=== PATIENT | male | born 1980 | race Caucasian/White ===

== ENCOUNTER 2021-11-07 09:07 | Emergency (ER) | payer OTHER, SELFPAY ==
--- NOTE | 2021-11-07 09:13 | ED.URI ---
HPI - URI/Sore Throat General Stated Complaint: upper respiratory Time Seen by Provider: 11/07/21 09:13 Source: patient, family and RN notes reviewed History of Present Illness HPI Narrative: Patient is a 40-year-old male who presents the urgent care with his spouse with complaints of cough, postnasal drainage and coughing fits since last Tuesday. Patient denies of any fevers, nausea, vomiting. Denies of any shortness of breath. Patient states that he has been taking daily Zyrtec and using Mucinex without much relief. No other acute complaints. No acute distress noted. Patient aware of the plan of care. Some parts of this dictation were generated by voice recognition software and may contain typographical and/or grammatical inaccuracies. Related Data Home Medications Medication Instructions Recorded Confirmed cetirizine [Zyrtec] 10 mg PO DAILY 11/07/21 11/07/21 Allergies Allergy/AdvReac Type Severity Reaction Status Date / Time No Known Allergies Allergy Unverified 11/07/21 09:23 Review of Systems Review of Systems: CONSTITUTIONAL: Denies fever, chills, or sweats. EYES: Denies visual changes, redness, or discharge. ENT: Reports of postnasal drainage, congestion CARDIOVASCULAR: Denies chest pain, palpitations, or edema. RESPIRATORY: Reports persistent cough without dyspnea GASTROINTESTINAL: Denies abdominal pain, nausea, vomiting, or diarrhea. GENITOURINARY: Denies dysuria or hematuria. SKIN: Denies rash or itching. MUSCULOSKELETAL: Denies back pain, joint pain, or myalgia. NEUROLOGIC: Denies headache, numbness, or weakness. All other systems reviewed are negative, except as documented in HPI. PMFSH Family History Family History Sibling Family history of malignant neoplasm of brain Social History Social History Smoking status: Never smoker Alcohol intake: never Comments At the time of my signature, I reviewed and agree with the nursing past medical, surgical, social, and family history. There is no relevant family history pertinent to the patient complaint. Exam Narrative: GENERAL: This is a well-nourished, well-developed patient, in no apparent distress. HEAD: normocephalic, atraumatic. EYES: PERRL. Sclera clear/white. Vision is grossly intact. EARS: External ears normal, auditory canals clear and without drainage, bilateral cerumen noted without impaction. TMs normal without perforation. Hearing grossly intact. NOSE: External nose normal with no obvious nasal discharge mild bilateral erythemic nares clear to yellow rhinorrhea THROAT: Mucous membranes moist. Mild erythema noted posterior pharynx with moderate postnasal drainage NECK: Neck supple CARDIOVASCULAR: Regular rate and rhythm without murmurs, gallops, or rubs. RESPIRATORY: Dry cough noted on exam. Clear to auscultation. Breath sounds equal bilaterally. No wheezes, rales, or rhonchi. SKIN: warm, intact with no suspicious lesions or rash, good texture and turgor. NEURO: awake, alert, and oriented to person, place and time. There were no obvious focal neurologic abnormalities. EXTREMITIES: No clubbing, cyanosis, or edema. Course Course Level of Care: Express Care Visit Vital Signs Vital signs: Vital Signs Temperature 98.4 F 11/07/21 09:19 Pulse Rate 103 H 11/07/21 09:19 Respiratory Rate 14 11/07/21 09:19 Blood Pressure 198/87 H 11/07/21 09:19 Pulse Oximetry 98 11/07/21 09:19 Temperature 98.4 F 11/07/21 09:19 Pulse Rate 103 H 11/07/21 09:19 Respiratory Rate 14 11/07/21 09:19 Blood Pressure 198/87 H 11/07/21 09:19 Pulse Oximetry 98 11/07/21 09:19 Reviewed-patient is informed that they may have pre-hypertension or hypertension based on a blood pressure reading in the department. I recommend the patient call the primary care provider listed on their discharge instructions or a physician of their choic
[2021-11-07 09:19] VITALS: BP 198/87; PULSE 103; RESP 14; TEMP 36.9; O2SAT 98
== END 2021-11-07 09:30 | disposition home or self-care (01) ==
PROVIDERS: Emergency Provider Nurse Practitioner Family; PCP Family Medicine
DX: J40 Bronchitis, not specified as acute or chronic (principal)
CPT/HCPCS: 99213; G0463

== ENCOUNTER 2021-11-14 08:16 | Outpatient (CLI) | payer OTHER, SELFPAY ==
[2021-11-14 09:06] LABS: Basophils Absolute Auto 0.1 K/mm3 (0.0-0.1); Basophils Percent Auto 0.8 % (0.2-1.2); Eosinophils Absolute Auto 0.1 K/mm3 (0-0.3); Eosinophils Percent Auto 0.9 % (0-4.4); Hematocrit 46.9 % (42.0-52.0); Hemoglobin 14.7 g/dL (14.0-18.0); Immature Granulocyte Absolute 0.06 K/mm3 (0.00-0.031); Immature Granulocyte Percent A 0.5 % (0-0.5); Lymphocytes Absolute Auto 2.52 K/mm3 (0.9-3.2); Mean Corpuscular HGB Conc 31.3 g/dl (32-36); Mean Corpuscular Hemoglobin 26.2 pg (26-34); Mean Corpuscular Volume 83.5 fl (80-100); Mean Platelet Volume 12.3 fl (7.4-10.4); Monocytes Percent Auto 8.3 % (2.6-8.5); Neutrophils Absolute Auto 8.2 K/mm3 (1.3-6.7); Neutrophils Percent Auto 68.5 % (45.5-73.1); Platelet Count Result 201 k/mm3 (150-375); Red Blood Count 5.62 M/mm3 (4.6-6.20); Red Cell Distribution Width 13.3 % (11.5-14.5)
[2021-11-14 09:13] LABS: Alanine Aminotransferase 33 U/L (4-50); Albumin Level 4.1 g/dL (3.5-5.1); Alkaline Phosphatase 73 U/L (38-126); Anion Gap 5 mmol/L (8-16); Aspartate Amino Transferase 25 U/L (17-59); Bilirubin,Total 0.9 mg/dL (0.2-1.3); Blood Urea Nitrogen 15 mg/dL (9-20); Calcium 8.6 mg/dL (8.4-10.2); Carbon Dioxide 32 mmol/L (22-30); Chloride 101 mmol/L (98-107); Cholesterol 168 mg/dL (0-200); Estimated Glomerular Filt Rate > 60; Glucose 107 mg/dL (65-110); HDL Direct 31 mg/dL; Sodium 138 mmol/L (137-145); Triglycerides 100 mg/dL (<150)
[2021-11-14 09:24] LABS: LDL Cholesterol Direct 107 mg/dL
[2021-11-14 09:45] LABS: Hemoglobin A1C 5.6 % (<5.7)
== END 2021-11-14 08:17 | disposition home or self-care (01) ==
PROVIDERS: PCP Family Medicine; Visit Provider Family Medicine
DX: I10 Essential (primary) hypertension (principal); Z13.29 Encounter for screening for other suspected endocrine disorder; Z13.1 Encounter for screening for diabetes mellitus; E78.2 Mixed hyperlipidemia
CPT/HCPCS: 36415; 80053; 80061; 83036; 84443; 85025

== ENCOUNTER 2022-02-12 15:38 | Outpatient (CLI) | payer OTHER, SELFPAY ==
[2022-02-12 16:04] LABS: Basophils Absolute Auto 0.1 K/mm3 (0.0-0.1); Basophils Percent Auto 0.6 % (0.2-1.2); Eosinophils Absolute Auto 0.1 K/mm3 (0-0.3); Eosinophils Percent Auto 1.1 % (0-4.4); Hematocrit 45.4 % (42.0-52.0); Hemoglobin 14.4 g/dL (14.0-18.0); Immature Granulocyte Absolute 0.03 K/mm3 (0.00-0.031); Immature Granulocyte Percent A 0.3 % (0-0.5); Lymphocytes Absolute Auto 1.98 K/mm3 (0.9-3.2); Lymphocytes Percent Auto 20.4 % (18.3-44.2); Mean Corpuscular HGB Conc 31.7 g/dl (32-36); Mean Corpuscular Hemoglobin 25.8 pg (26-34); Mean Corpuscular Volume 81.2 fl (80-100); Monocytes Absolute Auto 0.7 K/mm3 (0.1-0.6); Monocytes Percent Auto 7.3 % (2.6-8.5); Neutrophils Absolute Auto 6.8 K/mm3 (1.3-6.7); Neutrophils Percent Auto 70.3 % (45.5-73.1); Platelet Count Result 197 k/mm3 (150-375); Red Blood Count 5.59 M/mm3 (4.6-6.20); White Blood Count 9.7 K/mm3 (4.5-10.0)
[2022-02-12 16:06] LABS: Alanine Aminotransferase 39 U/L (6-50); Albumin Level 4.4 g/dL (3.5-5.1); Alkaline Phosphatase 90 U/L (38-126); Anion Gap 10 mmol/L (8-16); Aspartate Amino Transferase 26 U/L (17-59); Bilirubin,Total 0.7 mg/dL (0.2-1.3); Blood Urea Nitrogen 12 mg/dL (9-20); Carbon Dioxide 26 mmol/L (22-30); Chloride 97 mmol/L (98-107); Estimated Glomerular Filt Rate > 60; Glucose 107 mg/dL (65-110); Potassium 3.8 mmol/L (3.4-5.0); Sodium 133 mmol/L (137-145)
[2022-02-12 16:36] LABS: Prostate Specific Antigen 0.9 ng/mL (< OR = 4.0)
== END 2022-02-12 15:39 | disposition home or self-care (01) ==
LOC: ANHLAB 15:40
PROVIDERS: PCP Family Medicine; Visit Provider Physician Assistant
DX: N45.1 Epididymitis (principal); R39.12 Poor urinary stream
CPT/HCPCS: 36415; 80053; 84153; 85025

== ENCOUNTER 2022-02-18 14:44 | Outpatient (CLI) | payer OTHER, SELFPAY ==
--- NOTE | ~2022-02-18 | US_ITS ---
US scrotum doppler INDICATION: Testicular pain TECHNIQUE: Testicular sonogram utilizing grayscale and color Doppler FINDINGS: The testes are normal in size and appearance. No focal lesions are seen. The right testes measures 4.3 x 2.5 x 8.6 cm centimeters, and the left testis measures 4.4 x 2.5 x 3 cm cm. There is n ormal vascular flow to both testes. The right and left epididymides appear normal. There are bilateral varicoceles. IMPRESSION: 1. Bilateral varicoceles. Reviewed, dictated and finalized at location A. IMPRESSION: 1. Bilateral varicoceles.
== END 2022-02-18 14:45 | disposition home or self-care (01) ==
PROVIDERS: PCP Family Medicine; Visit Provider Physician Assistant
DX: N45.1 Epididymitis (principal); R35.0 Frequency of micturition; I86.1 Scrotal varices
CPT/HCPCS: 76870; 93976

== ENCOUNTER 2022-03-19 16:23 | Outpatient (CLI) | payer OTHER, SELFPAY ==
--- NOTE | ~2022-03-19 | XR_ITS ---
EXAM: XR abdomen/kub 1V DATE: 03/19/2022 16:45 HISTORY: R39.11 - Hesitancy of micturition;injury to testes 2 mos ago . COMPARISON: None available. FINDINGS: Normal bowel gas pattern. No organomegaly. No abnormal abdominal calcification. Mild lumba r scoliosis. Multilevel marginal osteophytosis in the spine. IMPRESSION: Lumbar scoliosis. Multilevel degenerative disc disease. Reviewed, dictated and finalized at location K.
== END 2022-03-19 16:24 | disposition home or self-care (01) ==
LOC: ANHIMG 16:25
PROVIDERS: PCP Family Medicine; Visit Provider Family Medicine
DX: R39.11 Hesitancy of micturition (principal); M41.9 Scoliosis, unspecified; M51.36 Other intervertebral disc degeneration, lumbar region
CPT/HCPCS: 74018

== ENCOUNTER 2022-05-13 10:12 | Outpatient (CLI) | payer OTHER, SELFPAY ==
[2022-05-18 20:07] LABS: PSA, Free 0.21 ng/mL; PSA, Total 0.7 ng/mL (<=4.0)
== END 2022-05-13 10:13 | disposition home or self-care (01) ==
LOC: ANHLAB 10:15
PROVIDERS: PCP Family Medicine; Visit Provider Physician Assistant
DX: Z12.5 Encounter for screening for malignant neoplasm of prostate (principal)
CPT/HCPCS: 36415; 84153; 84154

== ENCOUNTER 2023-12-24 09:17 | Outpatient (CLI) | payer OTHER, SELFPAY ==
[2023-12-24 09:41] LABS: Basophils Absolute Auto 0.1 K/mm3 (0.0-0.1); Eosinophils Absolute Auto 0.1 K/mm3 (0-0.3); Eosinophils Percent Auto 1.1 % (0-4.4); Hematocrit 45.6 % (42.0-52.0); Hemoglobin 14.2 g/dL (14.0-18.0); Immature Granulocyte Absolute 0.02 K/mm3 (0.00-0.031); Immature Granulocyte Percent A 0.2 % (0-0.5); Lymphocytes Absolute Auto 1.52 K/mm3 (0.9-3.2); Lymphocytes Percent Auto 18.6 % (18.3-44.2); Mean Corpuscular HGB Conc 31.1 g/dl (32-36); Mean Corpuscular Hemoglobin 25.4 pg (26-34); Mean Corpuscular Volume 81.7 fl (80-100); Mean Platelet Volume 11.4 fl (7.4-10.4); Monocytes Absolute Auto 0.6 K/mm3 (0.1-0.6); Monocytes Percent Auto 7.4 % (2.6-8.5); Neutrophils Absolute Auto 5.9 K/mm3 (1.3-6.7); Neutrophils Percent Auto 71.7 % (45.5-73.1); Platelet Count Result 178 k/mm3 (150-375); Red Blood Count 5.58 M/mm3 (4.6-6.20); Red Cell Distribution Width 12.9 % (11.5-14.5); White Blood Count 8.2 K/mm3 (4.5-10.0)
[2023-12-24 09:55] LABS: Alanine Aminotransferase 37 U/L (6-50); Albumin Level 4.3 g/dL (3.5-5.1); Alkaline Phosphatase 77 U/L (38-126); Anion Gap 8 mmol/L (4-12); Aspartate Amino Transferase 29 U/L (17-59); Bilirubin,Total 0.9 mg/dL (0.2-1.3); Blood Urea Nitrogen 15 mg/dL (9-20); Calcium 9.1 mg/dL (8.4-10.2); Carbon Dioxide 28 mmol/L (22-30); Chloride 104 mmol/L (98-107); Cholesterol 173 mg/dL (0-200); Estimated Glomerular Filt Rate > 60; Glucose 124 mg/dL (65-110); HDL Direct 32 mg/dL; Potassium 4.6 mmol/L (3.4-5.0); Sodium 140 mmol/L (137-145); Triglycerides 135 mg/dL (<150)
[2023-12-24 10:06] LABS: LDL Cholesterol Direct 112 mg/dL
[2023-12-24 10:12] LABS: Hemoglobin A1C 5.9 % (<5.7)
== END 2023-12-24 09:18 | disposition home or self-care (01) ==
LOC: ANHLAB 09:19
PROVIDERS: PCP Family Medicine; Visit Provider Family Medicine
DX: R73.09 Other abnormal glucose (principal); I10 Essential (primary) hypertension; Z68.42 Body mass index [BMI] 45.0-49.9, adult
CPT/HCPCS: 36415; 80053; 80061; 83036; 85025

== ENCOUNTER 2024-08-08 14:17 | Outpatient (CLI) | payer OTHER, SELFPAY ==
--- NOTE | ~2024-08-08 | XR_ITS ---
EXAM: XR_CERV2-3V_CR DATE: 08/08/2024 14:31 HISTORY: M54.2 - Cervicalgia . COMPARISON: None available. FINDINGS: Craniocervical association and atlantoaxial joint are aligned. Mild degenerative change at the atlantodental interval. No prevertebral soft tissue swelling. 2 mm retrolisthesis at C3-4. Verte bral body heights are maintained. Normal disc spaces. Mild disc space narrowing at C4-5 and C5-6. Mil d multilevel facet sclerosis. IMPRESSION: Minimal grade 1 retrolisthesis at C3-4. Mild multilevel cervical degenerative disc diseas e. Mild multilevel facet arthropathy. Reviewed, dictated and finalized at location K. UNDERWRITER IMPRESSION: Minimal grade 1 retrolisthesis at C3-4. Mild multilevel cervical de generative disc disease. Mild multilevel facet arthropathy.
== END 2024-08-08 14:18 | disposition home or self-care (01) ==
PROVIDERS: PCP Physician Assistant Medical; Visit Provider Physician Assistant Medical
DX: M43.12 Spondylolisthesis, cervical region (principal); M50.321 Other cervical disc degeneration at C4-C5 level; M50.322 Other cervical disc degeneration at C5-C6 level; M47.892 Other spondylosis, cervical region
CPT/HCPCS: 72040

== ENCOUNTER 2025-03-30 09:21 | Outpatient (CLI) | payer OTHER, SELFPAY ==
[2025-03-30 09:54] LABS: Hematocrit 47.8 % (42.0-52.0); Hemoglobin 14.9 g/dL (14.0-18.0); Mean Corpuscular HGB Conc 31.2 g/dl (32-36); Mean Corpuscular Hemoglobin 25.0 pg (26-34); Mean Corpuscular Volume 80.2 fl (80-100); Platelet Count Result 192 k/mm3 (150-375); Red Blood Count 5.96 M/mm3 (4.6-6.20); White Blood Count 8.4 K/mm3 (4.5-10.0)
[2025-03-30 09:58] LABS: Hemoglobin A1C 5.8 % (<5.7)
[2025-03-30 10:10] LABS: Alanine Aminotransferase 38 U/L (6-50); Albumin Level 4.4 g/dL (3.5-5.1); Alkaline Phosphatase 86 U/L (38-126); Anion Gap 7 mmol/L (4-12); Aspartate Amino Transferase 30 U/L (17-59); Bilirubin,Total 1.3 mg/dL (0.2-1.3); Blood Urea Nitrogen 13 mg/dL (9-20); Calcium 9.2 mg/dL (8.4-10.2); Carbon Dioxide 29 mmol/L (22-30); Chloride 101 mmol/L (98-107); Cholesterol 188 mg/dL (0-200); Estimated Glomerular Filt Rate > 60; Glucose 120 mg/dL (65-110); HDL Direct 31 mg/dL; Potassium 4.3 mmol/L (3.4-5.0); Sodium 137 mmol/L (137-145); Total Protein 7.8 g/dL (6.3-8.2); Triglycerides 129 mg/dL (<150)
[2025-03-30 10:46] LABS: Thyroid Stimulating Hormone 0.806 uIU/mL (0.465-4.680)
== END 2025-03-30 09:22 | disposition home or self-care (01) ==
LOC: ANHLAB 09:23
PROVIDERS: PCP Family Medicine; Visit Provider Physician Assistant
DX: Z00.00 Encounter for general adult medical examination without abnormal findings (principal); I10 Essential (primary) hypertension; F41.9 Anxiety disorder, unspecified; R73.01 Impaired fasting glucose
CPT/HCPCS: 36415; 80053; 80061; 83036; 84443; 85027

== ENCOUNTER 2025-04-05 16:29 | Outpatient (CLI) | payer OTHER, SELFPAY ==
--- NOTE | ~2025-04-05 | XR_ITS ---
XR abdomen/kub 1V 04/05/2025 16:40 INDICATION: Abdominal pain TECHNIQUE: KUB COMPARISON: None FINDINGS: Bowel gas pattern is normal. There is no evidence of free air, mass, organomegaly, ascites or obstruction. No abnormal calculi are seen. The bones appear intact. IMPRESSION: 1: No acute abdominal abnormality identified. Reviewed, dictated and finalized at location O.
== END 2025-04-05 16:30 | disposition home or self-care (01) ==
PROVIDERS: PCP Family Medicine; Visit Provider Family Medicine
DX: R10.9 Unspecified abdominal pain (principal)
CPT/HCPCS: 74018

== ENCOUNTER 2025-04-10 15:52 | Outpatient (CLI) | payer OTHER, SELFPAY ==
--- NOTE | ~2025-04-10 | US_ITS ---
Clinical history:Epigastric pain EXAM:Ultrasound abdomen complete TECHNIQUE:Multiple static grayscale images and color Doppler images were obtained of the abdomen. Comparisons:None available FINDINGS: Liver is hyperechoic likely due to fatty infiltration and/or hepatocellular disease. Pancreas was not adequately visualized for evaluation. Hepatopedal flow in the portal vein. No gallbladder wall thickening or pericholecystic fluid. No gallstones. No Neff's sign according to the senior technologist. Common duct measures 4 mm. Right kidney measures 13.1 x 7.0 6.9 cm. No hydronephrosis. Left kidney measures 12.6 x 6.7 x 4.4 cm. No left-sided hydronephrosis. The spleen measures 16.5 cm in greatest dimension and is moderately enlarged. IMPRESSION: 1. No sonographic evidence for acute cholecystitis. 2. Liver is hyperechoic likely due to fatty infiltration and/or hepatocellular disease. 3. Spleen is moderately enlarged. 4. Pancreas was not visualized. If symptoms persist or worsen, consider a short-term follow-up study or CT imaging for further assessment. Reviewed, dictated and finalized at location Q. IMPRESSION: 1. No sonographic evidence for acute cholecystitis. 2. Liver is hyperechoic likely due to fatty infiltration and/or hepatocellular disease. 3. Spleen is moderately enlarged. 4. Pancreas was not visualized. If symptoms persist or worsen, consider a short-term follow-up study or CT imag ing for further assessment.
--- OUTSIDE RECORDS SUMMARY | 2025-04-10 15:55 | XMS_ITS | Continuity of Care Document ---
Author Organization [facility] Address [address] [address] Insurance Providers Payer Plan Claims Address Claims Phone Policy Number Group Number Relation Employer Guarantor Name Guarantor Guarantor Address Guarantor Phone [facility] [id number] [facility] [id number] Problems Condition ICD9 code ICD10 code SNOMED code Start Date End Date S tatus Encounter for screening for other metabolic disorders Z13.228 Results No Results Allergies, adverse reactions, alerts No known allergies and adverse reactions Medications No administered medications reported Vital Signs No vital signs reported Social History No smoking Hx information available
--- OUTSIDE RECORDS SUMMARY | 2025-04-10 15:55 | XMS_ITS | Clinical Summary ---
Author Organization [facility] Address [address] [place] [address] Phone Care Team Providers Care Primary Care Sales Representative Name Role Phone Whitney Correa MD Primary Care Provider [phone] Allergies No known active allergies Medications SUMAtriptan (IMITREX) 20 MG/ACT Solution Sikes the entire contents of one sprayer into a nostril soon after the onset of a migraine headache. A second dose may be prayed into the other notrsil after at least 2 hours if the headache persists. Use no more than 2 sprays in a day. 10 Each 0 03/12/2016 Active tamsulosin (FLOMAX) 0.4 MG Capsule Take 1 Capsule by mouth daily. 90 Capsule 02/09/2022 Active Active Problems No known active problems Social History Tobacco Use Types Packs/Day Years Used Date Smoking Tobacco: Former Smokeless Tobacco: Never Alcohol Use Standard Drinks/Week Comments No 0 (1 standard drink = 0.6 oz pur e alcohol) Sex and Gender Information Value Date Recorded Sex Assigned at Not on file Legal Sex Male 11:17 PM CDT Gender Identity Not on file Sexual Orientation Not on file Last Filed Vital Signs Vital Sign Reading Time Taken Comments Blood Pressure 135/72 02/09/2022 12:21 AM CDT Pulse 83 02/09/2022 12:21 AM CDT Temperature 36 C (96.8 F) 02/08/2022 10:21 PM CDT Respiratory Rate 19 02/09/2022 12:21 AM CDT Oxygen Saturation 98% 02/09/2022 12:21 AM CDT Inhaled Oxygen Concentration - - Weight 173.7 kg (383 lb) 02/08/2022 10:21 PM CDT Height 189.2 cm (6' 2.5) 02/08/2022 10:21 PM CD T Body Mass Index 48.52 02/08/2022 10:21 PM CDT Plan of Treatment Not on file Care Teams Primary Care Sales Representative Relationship Specialty Start Date End Date Whitney Correa MD [address] [address] PCP - General Family Medicine 02/08/22
== END 2025-04-10 15:53 | disposition home or self-care (01) ==
PROVIDERS: PCP Family Medicine; Visit Provider Family Medicine
DX: R10.13 Epigastric pain (principal)
CPT/HCPCS: 76700

== ENCOUNTER 2025-04-23 01:08 | Day surgery (SDC) | payer OTHER, SELFPAY ==
[2025-04-19 10:33] VITALS: BMI 47.5
[2025-04-23 06:19] VITALS: BP 163/84; PULSE 74; RESP 18; TEMP 36.2; O2SAT 100
[2025-04-23] MEDS: LACTATED RINGERS 1,000 ML 150 ML IV CONT (06:32)
--- NOTE | 2025-04-23 07:11 | WPDANESEPPF ---
Anes - Initial Pre Proc Eval Procedure: Operation Date: 04/23/25 07:30 Proposed Procedures p Esophagogastroduodenoscopy EGD - Johnathan Flores MD Date/Time: 04/23/25 07:11 Surgeon: Johnathan Flores MD Pre Op Diagnosis: Abnormal weight loss Patient Data Age: 44 Gender: M Height: 1.88 m Weight: 168.9 kg Last Vital Signs Temp 36.2 C L 04/23/25 06:19 Pulse 74 04/23/25 06:19 Resp 18 04/23/25 06:19 BP 163/84 H 04/23/25 06:19 Pulse Ox 100 04/23/25 06:19 O2 Del Method Room Air 04/23/25 06:19 Allergies Allergy/AdvReac Type Severity Reaction Status Date / Time No Known Allergies Allergy Verified 04/23/25 06:19 Home Medications ?Medication ?Instructions ?Recorded ?Confirmed ?Type amlodipine 5 mg tablet 5 mg PO DAILY #90 tabs 09/06/24 04/19/25 Rx sildenafil 50 mg tablet See Rx Instructions .Route 09/06/24 04/19/25 Rx .COMPLEX #14 tabs esomeprazole magnesium 40 mg 40 mg PO .AM #90 caps 04/15/25 04/19/25 Rx capsule,delayed release Patient hx anesthesia problems: none Family hx anesthesia problems: none Results Review: All pre-operative results and documents have been reviewed as part of the pre-operative evaluation. [facility] Past Medical History Medical History Swollen lymph nodes PND (post-nasal drip) Morbid (severe) obesity due to excess calories LAN (generalized anxiety disorder) Dysfunction of both eustachian tubes Essential hypertension Headache Anxiety Erectile dysfunction Dysuria Urinary hesitancy BMI 45.0-49.9, adult Contusion of scrotum Elevated BP without diagnosis of hypertension Body mass index [BMI] 45.0-49.9, adult (08/25/16) Acute pharyngitis due to other specified organisms Acute non-recurrent maxillary sinusitis Poor urinary stream Epididymitis Urinary frequency Encounter for general adult medical examination without abnormal findings Surgical History Surgical History No pertinent past surgical history Family History Family History Sibling Family history of malignant neoplasm of brain Father COPD (chronic obstructive pulmonary disease) Social History Social History Social History: Smoking packs per day: 0.5 Smoking cigarettes per day: 10.0 Years smoked: 12 Smoking pack-years: 6.00 Smoking status: Former smoker Tobacco type: cigarettes Second hand tobacco smoke exposure: No Alcohol intake: never Substance use: never Substance use type: does not use Do You Feel Safe in your Home?: Yes Lack of Transportation: No Lack of Food: Never True Current Housing: I Have Housing Concerned About Future Housing: No Difficulty Paying Gas/Electric Bills: No Difficulty Paying for Meds: No Currently Unemployed: No Education: Don't Know Difficulty w/ Childcare or Family Care: No Living arrangements: with family Occupation/Education: occupation Gender identity (if verbalized by the patient): Male Sexual Orientation (if Verbalized by the Patient): Straight or Heterosexual Spiritual care concerns: No Anes - Eval Final PreProcedure Day of Procedure 04/23/25 07:11 Patient weight: morbidly obese Heart: regular rate and rhythm Lungs: clear to auscultation Airway: Mallampati scale class II Neurological: alert and oriented Last oral intake: >/= 8 hours ASA classification: III Emergent: no Anesthetic plan: proceed Anesthesia type and monitoring: general GIVS and standard monitoring Results Review: All pre-operative results and documents have been reviewed as part of the pre-operative evaluation. Informed Consent: The patient's anesthetic plan and its attendant risks and benefits were discussed with the patient/family/POA. Questions were solicited and answers provided to the satisfaction of the patient/family/POA.
--- NOTE | 2025-04-23 07:22 | PM.HPGS ---
History of Present Illness History of Present Illness Consent: Risks, benefits, and alternatives have been discussed and questions answered. Patient agrees to proceed with procedure. Chief complaint: Abnormal weight loss Narrative: Dk Gomez is a 44 year old male here for egd, h/o bloating and abdominal pain with weight loss Review of Systems Review of Systems: All systems reviewed & are unremarkable except as noted in HPI and below PMFSH Past Medical History Medical History Swollen lymph nodes PND (post-nasal drip) Morbid (severe) obesity due to excess calories LAN (generalized anxiety disorder) Dysfunction of both eustachian tubes Essential hypertension Headache Anxiety Erectile dysfunction Dysuria Urinary hesitancy BMI 45.0-49.9, adult Contusion of scrotum Elevated BP without diagnosis of hypertension Body mass index [BMI] 45.0-49.9, adult (08/25/16) Acute pharyngitis due to other specified organisms Acute non-recurrent maxillary sinusitis Poor urinary stream Epididymitis Urinary frequency Encounter for general adult medical examination without abnormal findings Surgical History Surgical History No pertinent past surgical history Family History Family History Sibling Family history of malignant neoplasm of brain Father COPD (chronic obstructive pulmonary disease) Social History Social History Social History: Smoking packs per day: 0.5 Smoking cigarettes per day: 10.0 Years smoked: 12 Smoking pack-years: 6.00 Smoking status: Former smoker Tobacco type: cigarettes Second hand tobacco smoke exposure: No Alcohol intake: never Substance use: never Substance use type: does not use Do You Feel Safe in your Home?: Yes Lack of Transportation: No Lack of Food: Never True Current Housing: I Have Housing Concerned About Future Housing: No Difficulty Paying Gas/Electric Bills: No Difficulty Paying for Meds: No Currently Unemployed: No Education: Don't Know Difficulty w/ Childcare or Family Care: No Living arrangements: with family Occupation/Education: occupation Gender identity (if verbalized by the patient): Male Sexual Orientation (if Verbalized by the Patient): Straight or Heterosexual Spiritual care concerns: No Meds Home Medications and Allergies Home Medications ?Medication ?Instructions ?Recorded ?Confirmed ?Type amlodipine 5 mg tablet 5 mg PO DAILY #90 tabs 09/06/24 04/19/25 Rx sildenafil 50 mg tablet See Rx Instructions .Route 09/06/24 04/19/25 Rx .COMPLEX #14 tabs esomeprazole magnesium 40 mg 40 mg PO .AM #90 caps 04/15/25 04/19/25 Rx capsule,delayed release Allergies Allergy/AdvReac Type Severity Reaction Status Date / Time No Known Allergies Allergy Verified 04/23/25 06:19 Vital Signs Vital Signs - 24 hr 04/23/25 06:19 Temperature 97.1 F L Pulse Rate 74 Respiratory Rate 18 Blood Pressure 163/84 H Pulse Oximetry 100 Oxygen Delivery Room Air Exam Const: General: comfortable and no acute distress HENMT: Face/Nose/Sinus: Normal nares present Eyes: General: appearance normal, both eyes and all related structures Neck: Neck: no JVD Resp: Auscultation: clear to auscultation bilaterally Cardio: Rate: regular rate Rhythm: regular rhythm GI: Inspection: non-distended GI Palp: Yes Soft to palpation Skin: General skin exam: normal color Extrem: General: normal to inspection Psych: Mental Status: mental status grossly normal Assessment and Plan Assessment and plan (1) Epigastric abdominal pain: Code(s): R10.13 - Epigastric pain Status: Acute Assessment and Plan: egd today ultrasound noted fatty liver (2) Bloating: Code(s): R14.0 - Abdominal distension (gaseous) Status: Acute
--- NOTE | 2025-04-23 07:36 | S_PTH ---
PATIENT: Dk Gomez LOC: [facility] Stock#:[id number] AGE/SX: 44/M ROOM: RE04/23/[address]: Johnathan Flores MD : 1980 BED: DIS: 04/23/2025 SPEC #: [id number] RECD: 04/23/25 08:20 STATUS: FLORI RELyric #: [id number] GWYN: 04/23/25 07:[address]: Johnathan Flores DEPT: [facility] Surgical RECD BY: Felicia Dupont ENTERED: 04/23/25 08:21 SP TYPE: Surgical OTHR DR: Brent De Leon MD Tissues: A - Small Bowel Bx B - Gastric Biopsy Procedures: Hematoxylin and Eosin Stain Gross and Microscopic Level 4
[2025-04-23 07:38] VITALS: BP 106/47; PULSE 69; RESP 15; O2SAT 99
[2025-04-23 07:48] VITALS: BP 114/58; PULSE 68; RESP 15; O2SAT 100
[2025-04-23 07:58] VITALS: BP 130/68; PULSE 62; RESP 14; O2SAT 100
== END 2025-04-23 08:09 | disposition home or self-care (01) ==
PROVIDERS: PCP Family Medicine; Referring Provider Family Medicine; Visit Provider Internal Medicine Gastroenterology
PROC: 0DJ08ZZ Inspection of Upper Intestinal Tract, Via Natural or Artificial Opening Endoscopic (ICD-10-PCS; CPT 43239; principal; 2025-04-23 07:30)
DX: R10.13 Epigastric pain (principal); R14.0 Abdominal distension (gaseous); F41.9 Anxiety disorder, unspecified; I10 Essential (primary) hypertension; N52.9 Male erectile dysfunction, unspecified; R39.11 Hesitancy of micturition; R35.0 Frequency of micturition; E66.01 Morbid (severe) obesity due to excess calories; Z68.42 Body mass index [BMI] 45.0-49.9, adult; Z87.891 Personal history of nicotine dependence; Z80.8 Family history of malignant neoplasm of other organs or systems
CPT/HCPCS: 43239; 88305; J2003; J2704; J7120

== ENCOUNTER 2025-05-17 07:44 | Outpatient (CLI) | payer OTHER, SELFPAY ==
--- NOTE | ~2025-05-17 | CT_ITS ---
EXAM/PROCEDURE: CT abdomen pelvis w con HISTORY: R10.9 - Unspecified abdominal pain COMPARISON: None available. TECHNIQUE: IV contrast enhanced CT of abdomen and pelvis performed. FINDINGS: The bowel gas pattern is not obstructive with no free air or free fluid or pneumatosis. Normal size appendix and aorta. Scattered aphthous chronic changes. Small bilateral fat-containing inguinal hernias. No hydroureter or hydronephrosis. Urinary bladder within normal limits for technique. The adrenal glands, spleen pancreas and liver appear within normal limits. No bulky lymphadenopathy or masses seen. Lung bases clear. Degenerative changes in the bones which otherwise appear intact. IMPRESSION: No acute findings to explain the source of patient's symptoms; chronic findings as above. Reviewed, dictated and finalized at location A. NING ANALYST
[2025-05-17 08:13] LABS: Estimated Glomerular Filt Rate > 60
== END 2025-05-17 07:45 | disposition home or self-care (01) ==
PROVIDERS: PCP Family Medicine; Visit Provider Family Medicine
DX: R10.9 Unspecified abdominal pain (principal); K76.0 Fatty (change of) liver, not elsewhere classified; R14.0 Abdominal distension (gaseous); R63.4 Abnormal weight loss
CPT/HCPCS: 74177; Q9967